=== PATIENT | female | born 1970 ===

== ENCOUNTER 2017-01-13 14:39 | Emergency (ER) | payer MEDICAID ==
[2017-01-13 14:50] VITALS: RESP 16; TEMP 98.2; O2SAT 100
[2017-01-13 15:45] VITALS: BP 142/99
--- NOTE | 2017-01-13 15:51 | ED PDOC ---
HPI: Skin/Bite Injury Time Seen by Provider: 01/13/17 15:05 Chief Complaint (Nursing): Abnormal Skin Integrity Chief Complaint (Provider): Abnormal Skin Integrity History Per: Patient History/Exam Limitations: no limitations Onset/Duration Of Symptoms: Worse Since (x2 weks), Other (x10 years) Current Symptoms Are (Timing): Still Present Location Of Injury: Right: Shoulder, Posterior: Shoulder Quality Of Symptoms: Painful, Swollen Additional Complaint(s): 46 year old female presents to ED with complaints of chronic right shoulder swelling that worsened in the last 2 weeks and has no past medical history. Patient states she first noticed swelling to the area x10 years ago. (+) redness , warmth, and pain to the area x2 weeks. (-) fever or trauma. PCP: Luis Haider Past Medical History Reviewed: Historical Data, Nursing Documentation, Vital Signs Vital Signs: Last Vital Signs Temp 98.2 F 01/13/17 14:47 Pulse 100 H 01/13/17 14:47 Resp 16 01/13/17 14:47 BP 142/99 H 01/13/17 15:44 Pulse Ox 100 01/13/17 14:47 - Medical History PMH: No Chronic Diseases - Surgical History Surgical History: No Surg Hx - Family History Family History: States: No Known Family Hx - Social History Current smoker - smoking cessation education provided: No Alcohol: None Drugs: Denies - Home Medications Home Medications: Ambulatory Orders Medication Instructions Recorded Cephalexin [cephalexin] 500 mg PO Q6 #28 cap 01/13/17 Naproxen [Naprosyn] 500 mg PO BID PRN #30 tab 01/13/17 - Allergies Allergies/Adverse Reactions: Allergies Allergy/AdvReac Type Severity Reaction Status Date / Time No Known Allergies Allergy Verified 01/13/17 14:47 Review of Systems ROS Statement: Except As Marked, All Systems Reviewed And Found Negative Constitutional: Negative for: Fever Musculoskeletal: Positive for: Shoulder Pain ((+) right shoulder pain, swelling , warmth, and erdness) Physical Exam - Reviewed Nursing Documentation Reviewed: Yes Vital Signs Reviewed: Yes - Physical Exam Appears: Positive for: Non-toxic, No Acute Distress Skin: Positive for: Normal Color (Quarter sized, skin colored mobil nonfluctuant non-indurated mass on right posterior trapezium area. No break in skin integrity. (+) Surrounding erythema), Warm, Dry Respiratory: Negative for: Respiratory Distress Extremity: Negative for: Deformity Neurologic/Psych: Positive for: Alert, Oriented. Negative for: Motor/Sensory Deficits - ECG O2 Sat by Pulse Oximetry: 100 (RA) Pulse Ox Interpretation: Normal Medical Decision Making Medical Decision Makin Initial impression: cellulitis 1535 Patient informed that swelling is likely due to lipoma. If mass enlarges, will require I&D. Patient instructed to follow up with PMD. 1543 Blood pressure: 142/99 Scribe Attestation: Documented by Jessie Cárdenas, acting as a scribe for Tacho Ibrahim PA-C. Provider Scribe Attestation: All medical record entries made by the Scribe were at my direction and personally dictated by me. I have reviewed the chart and agree that the record accurately reflects my personal performance of the history, physical exam, medical decision making, and the department course for this patient. I have also personally directed, reviewed, and agree with the discharge instructions and disposition. Disposition - Clinical Impression Clinical Impression: Cellulitis - Disposition Disposition: Routine/Home Disposition Time: 15:35 Condition: STABLE Additional Instructions: FOLLOW UP WITH DR. NEVAREZ IN 2 DAYS FOR FURTHER EVALUATION WITHOUT FAIL. RETURN TO ED IMMEDIATELY IF FEVER DEVELOPS. Prescriptions: Cephalexin [cephalexin] 500 mg PO Q6 #28 cap Naproxen [Naprosyn] 500 mg PO BID PRN #30 tab PRN Reason: Pain Instructions: Cellulitis (ED) Forms: [employer] (Armenian) Print Language: GEORGIAN
[2017-01-13 16:41] VITALS: PULSE 91
== END 2017-01-13 16:30 | disposition home or self-care (01) ==
LOC: H.ER 14:39
DX: L03.113 Cellulitis of right upper limb (principal)

== ENCOUNTER 2017-01-20 14:50 | Emergency (ER) | payer MEDICAID ==
[2017-01-20 15:05] VITALS: RESP 18; TEMP 98.9; O2SAT 99
--- NOTE | 2017-01-20 15:42 | ED PDOC ---
HPI: Skin/Bite Injury Time Seen by Provider: 01/20/17 15:35 Chief Complaint (Nursing): Abnormal Skin Integrity Chief Complaint (Provider): Lipoma History Per: Patient History/Exam Limitations: no limitations Current Symptoms Are (Timing): Still Present Location Of Injury: Right: Shoulder Additional Complaint(s): Marcia is a 46 y/o female who presents to the ED for evaluation of lipoma. Seen here on 01/13 and discharged with Rx for antibiotics. States that her sister attempted to drain the lipoma at home and stuck a needle into it. Now complaining of increased pain to the lipoma site. PMD: Unknown Past Medical History Reviewed: Historical Data, Nursing Documentation, Vital Signs Vital Signs: Last Vital Signs Temp 98.9 F 01/20/17 15:03 Pulse 102 H 01/20/17 15:03 Resp 18 01/20/17 15:03 BP 148/100 H 01/20/17 15:03 Pulse Ox 99 01/20/17 16:10 - Family History Family History: States: Unknown Family Hx - Home Medications Home Medications: Ambulatory Orders Medication Instructions Recorded Cephalexin [cephalexin] 500 mg PO Q6 #28 cap 01/13/17 Naproxen [Naprosyn] 500 mg PO BID PRN #30 tab 01/13/17 Naproxen [Naprosyn Tab] 375 mg PO Q8 PRN #21 tab 01/20/17 - Allergies Allergies/Adverse Reactions: Allergies Allergy/AdvReac Type Severity Reaction Status Date / Time No Known Allergies Allergy Verified 01/13/17 14:47 Review of Systems ROS Statement: Except As Marked, All Systems Reviewed And Found Negative Skin: Positive for: Other (Lipoma to right posterior shoulder) Physical Exam - Reviewed Nursing Documentation Reviewed: Yes Vital Signs Reviewed: Yes - Physical Exam Appears: Positive for: Well, Non-toxic, No Acute Distress Head Exam: Positive for: ATRAUMATIC, NORMAL INSPECTION, NORMOCEPHALIC Skin: Positive for: Normal Color (with 3 cm region of fluctuance noted, with no erythema, by right posterior shoulder), Warm, Dry Eye Exam: Positive for: EOMI, Normal appearance, PERRL Neck: Positive for: Normal, Painless ROM Extremity: Positive for: Normal ROM. Negative for: Deformity Neurologic/Psych: Positive for: Alert, Oriented - ECG O2 Sat by Pulse Oximetry: 99 (RA) Pulse Ox Interpretation: Normal - Progress ED Course And Treament: tdap 0.5 ml IM x 1 dose Verbal consent prior to procedure. Lidocaine/epi 1% infiltrated to cyst. Incision made with serosanguinous fluid drained and small whitish material. Packing placed. Patient advised f/u with ED in 2 days for removal of sutures. Advised f/u with surgery for removal of sebaceous cyst. Medical Decision Making Medical Decision Making: Time: 15:40 Procedure: --aspirated 2cc of serosanguinous, mildly purulent discharge using an 18 adi needle --Bandaged wound --Patient is medically stable and will be discharged home --Advised patient to return to ED in 2 days for wound check Scribe Attestation: Documented by Luz Maria Long, acting as a scribe for Ingrid Beltran PA-C Provider Scribe Attestation: All medical record entries made by the Scribe were at my direction and personally dictated by me. I have reviewed the chart and agree that the record accurately reflects my personal performance of the history, physical exam, medical decision making, and the department course for this patient. I have also personally directed, reviewed, and agree with the discharge instructions and disposition. Disposition - Clinical Impression Clinical Impression: Cyst - Patient ED Disposition Is Patient to be Admitted: No - Disposition Referrals: Neo Osborne MD [Staff Provider] - Disposition: Routine/Home Disposition Time: 16:14 Condition: FAIR Prescriptions: Naproxen [Naprosyn Tab] 375 mg PO Q8 PRN #21 tab PRN Reason: Pain, Moderate (4-7) Instructions: Cyst (ED), Incision and Drainage (ED) Forms: [employer] (Frisian) Print Language: MACEDONIAN
[2017-01-20] MEDS: Lidocaine 1% w Epi 1:100,000 Inj IJ ONE (16:39)
[2017-01-20 16:57] VITALS: BP 137/90; PULSE 88
== END 2017-01-20 16:51 | disposition home or self-care (01) ==
LOC: H.ER 14:50
DX: L72.3 Sebaceous cyst (principal)

== ENCOUNTER 2017-01-22 16:12 | Emergency (ER) | payer MEDICAID ==
[2017-01-22 16:34] VITALS: BP 156/100; PULSE 102; RESP 18; TEMP 98.8; O2SAT 99
--- NOTE | 2017-01-22 16:54 | ED PDOC ---
HPI: Wound Care - HPI Time Seen by Provider: 01/22/17 16:34 Chief Complaint (Nursing): Wound Check Chief Complaint (Provider): Wound Check History Per: Patient Exam Limitations: no limitations Onset/Duration Of Symptoms: Days (x 2) Current Symptoms Are (Timing): Still Present Location Of Injury: Right: Shoulder Quality Of Symptoms: Painful Additional Complaint(s): Marcia is a 46 y/o female who presents to the ED for wound check. She was seen here 2 days ago for I&D of abscess on her right posterior. Patient does have mild pain near the site. She reports compliance with taking her Keflex, and is taking Naprosyn for pain. PMD: [facility] Past Medical History Reviewed: Historical Data, Nursing Documentation, Vital Signs Vital Signs: Last Vital Signs Temp 98.8 F 01/22/17 16:30 Pulse 102 H 01/22/17 16:30 Resp 18 01/22/17 16:30 BP 156/100 H 01/22/17 16:30 Pulse Ox 99 01/22/17 16:30 - Medical History PMH: HTN - Surgical History Other surgeries: abdominoplasty, tubal ligation - Family History Family History: States: No Known Family Hx - Social History Current smoker - smoking cessation education provided: No Alcohol: None Drugs: Denies - Home Medications Home Medications: Ambulatory Orders Medication Instructions Recorded Cephalexin [cephalexin] 500 mg PO Q6 #28 cap 01/13/17 Naproxen [Naprosyn] 500 mg PO BID PRN #30 tab 01/13/17 Naproxen [Naprosyn Tab] 375 mg PO Q8 PRN #21 tab 01/20/17 Sulfamethoxazole/Trimethoprim 1 tab PO BID #14 tab 01/22/17 [Bactrim DS 800 mg-160 mg] - Allergies Allergies/Adverse Reactions: Allergies Allergy/AdvReac Type Severity Reaction Status Date / Time No Known Allergies Allergy Verified 01/13/17 14:47 Review of Systems ROS Statement: Except As Marked, All Systems Reviewed And Found Negative Constitutional: Negative for: Fever, Chills Skin: Positive for: Other (Abscess at right shoulder) Physical Exam - Reviewed Nursing Documentation Reviewed: Yes Vital Signs Reviewed: Yes - Physical Exam Appears: Positive for: Well, Non-toxic, No Acute Distress Head Exam: Positive for: ATRAUMATIC, NORMAL INSPECTION, NORMOCEPHALIC Skin: Positive for: Normal Color. Negative for: Rash Eye Exam: Positive for: Normal appearance Back: Positive for: Other (Actively draining abscess to right posterior shoulder with minimal localized erythema, mild tenderness to palpation). Negative for: Normal Inspection Extremity: Positive for: Normal ROM. Negative for: Deformity Neurologic/Psych: Positive for: Alert, Oriented - ECG O2 Sat by Pulse Oximetry: 99 (RA) Pulse Ox Interpretation: Normal Medical Decision Making Medical Decision Making: Time: 16:55 Procedure Note: Packing removed, wound irrigated with normal saline. Expressed additional amount of purulent discharge and re-packed the wound with 1/4 inch gauze. Sterile bandage then applied. Plan: --Advised patient to continue course of Keflex and use Naprosyn prn for pain --Additionally, she will start Bactrim --Return to ED in 2 days for wound check Scribe Attestation: Documented by Luz Maria Long, acting as a scribe for Shellie Vincent PA-C Provider Scribe Attestation: All medical record entries made by the Scribe were at my direction and personally dictated by me. I have reviewed the chart and agree that the record accurately reflects my personal performance of the history, physical exam, medical decision making, and the department course for this patient. I have also personally directed, reviewed, and agree with the discharge instructions and disposition. Disposition - Clinical Impression Clinical Impression: Admission for wound check of abscess, Cyst - Patient ED Disposition Is Patient to be Admitted: No Counseled Patient/Family Regarding: Diagnosis, Need For Followup, Rx Given - Disposition Referrals: [facility] [Outside] Disposition: Routine/Home Disposition Time: 17:27 Condition: STABLE Additional Instructions: Keep wound clean and dry. Continue with current prescriptions and take new medication as directed. Return in 2 days for additional wound check. Prescriptions: Sulfamethoxazole/Trimethoprim [Bactrim DS 800 mg-160 mg] 1 tab PO BID #14 tab Instructions: Abscess (ED), Cyst (ED) Forms: [employer] (German) Print Language: BULGARIAN Time Seen by Provider: 01/22/17 16:34 Chief Complaint (Nursing): Wound Check
== END 2017-01-22 17:54 | disposition home or self-care (01) ==
LOC: H.ER 16:12
DX: Z48.00 Encounter for change or removal of nonsurgical wound dressing (principal); I10 Essential (primary) hypertension

== ENCOUNTER 2017-01-24 16:47 | Emergency (ER) | payer MEDICAID ==
[2017-01-24 17:00] VITALS: BP 145/90; PULSE 100; RESP 18; TEMP 97.9; O2SAT 99
--- NOTE | 2017-01-24 17:10 | ED PDOC ---
HPI: Wound Care - HPI Time Seen by Provider: 01/24/17 17:00 Chief Complaint (Nursing): Wound Check Chief Complaint (Provider): Wound Check History Per: Patient Exam Limitations: no limitations Onset/Duration Of Symptoms: Days (x4) Current Symptoms Are (Timing): Still Present Location Of Injury: Right: Shoulder Additional Complaint(s): Marcia Chavez is a 46 year old female that presents to the ED for a wound check on her right shoulder. Patient states that she was originally seen in the ED four days ago a cyst on her right shoulder, which was drained and packed, and she was given a prescription for Keflex. Patient then reports that she returned two days ago for a wound check, at which point the packing was removed but still purulent. Her wound was then repacked, and she was given a new prescription for Bactrim instead of Keflex. Patient presents today for another wound check. Past Medical History Reviewed: Historical Data, Nursing Documentation, Vital Signs Vital Signs: Last Vital Signs Temp 97.9 F 01/24/17 16:57 Pulse 100 H 01/24/17 16:57 Resp 18 01/24/17 16:57 BP 145/90 01/24/17 16:57 Pulse Ox 99 01/24/17 16:57 - Medical History PMH: HTN - Family History Family History: States: Unknown Family Hx - Home Medications Home Medications: Ambulatory Orders Medication Instructions Recorded Cephalexin [cephalexin] 500 mg PO Q6 #28 cap 01/13/17 Naproxen [Naprosyn] 500 mg PO BID PRN #30 tab 01/13/17 Naproxen [Naprosyn Tab] 375 mg PO Q8 PRN #21 tab 01/20/17 Sulfamethoxazole/Trimethoprim 1 tab PO BID #14 tab 01/22/17 [Bactrim DS 800 mg-160 mg] - Allergies Allergies/Adverse Reactions: Allergies Allergy/AdvReac Type Severity Reaction Status Date / Time No Known Allergies Allergy Verified 01/13/17 14:47 Review of Systems Constitutional: Negative for: Fever Skin: Positive for: Other (wound check of cyst present on right shoulder) Physical Exam - Reviewed Nursing Documentation Reviewed: Yes Vital Signs Reviewed: Yes - Physical Exam Appears: Positive for: Non-toxic, No Acute Distress Head Exam: Positive for: ATRAUMATIC, NORMOCEPHALIC Skin: Positive for: Normal Color, Warm Extremity: Positive for: Other (Purulent drainage still noted to wound present on right shoulder, more of cyst sac came out. ) Neurologic/Psych: Positive for: Alert, Oriented. Negative for: Motor/Sensory Deficits - ECG O2 Sat by Pulse Oximetry: 99 (RA) Pulse Ox Interpretation: Normal Medical Decision Making Medical Decision Making: Impression: Wound Check Plan: * Patient reports that she has appointment to have cyst present on right shoulder surgically removed on 02/03/17. Patient is advised to apply warm compress to the area. Patient has no further complaints and is stable for discharge home. Scribe Attestation: Documented by Corrina Mccrary, acting as a scribe for Niesha Shah PA-C. Provider Scribe Attestation: All medical record entries made by the Scribe were at my direction and personally dictated by me. I have reviewed the chart and agree that the record accurately reflects my personal performance of the history, physical exam, medical decision making, and the department course for this patient. I have also personally directed, reviewed, and agree with the discharge instructions and disposition. Disposition - Clinical Impression Clinical Impression: Encounter for wound re-check - Patient ED Disposition Is Patient to be Admitted: No - Disposition Disposition: Routine/Home Disposition Time: 17:15 Condition: STABLE Forms: [employer] (Upper Sorbian)
== END 2017-01-24 17:46 | disposition home or self-care (01) ==
LOC: H.ER 16:47
DX: Z48.00 Encounter for change or removal of nonsurgical wound dressing (principal)

== ENCOUNTER 2017-01-26 15:03 | Emergency (ER) | payer MEDICAID ==
[2017-01-26 15:26] VITALS: BP 148/92; PULSE 100; RESP 16; TEMP 98.6; O2SAT 98
--- NOTE | 2017-01-26 15:41 | ED PDOC ---
HPI: Hypertension/Hypotension Time Seen by Provider: 01/26/17 15:27 Chief Complaint (Nursing): High Blood Pressure Chief Complaint (Provider): Headache, hypertension History Per: Patient History/Exam Limitations: no limitations Onset/Duration Of Symptoms: Mins Current Symptoms Are (Timing): Still Present Additional History Per: Patient Additional Complaint(s): The patient is a 46yo female, past medical history of hypertension, presents to the ED for evaluation of a headache she developed this morning. Patient describes the headache as bitemporal and atraumatic, gradual onset. She states she has had similar headaches in the past and her pain is resolved by using Tylenol; patient states she took Tylenol [employer] and is currently without pain. Patient is requesting her blood pressure to be checked. She denies any fever, chills, head injury or sudden onset headaches. Past Medical History Reviewed: Historical Data, Nursing Documentation, Vital Signs Vital Signs: Last Vital Signs Temp 98.6 F 01/26/17 15:24 Pulse 100 H 01/26/17 15:24 Resp 16 01/26/17 15:24 BP 148/92 H 01/26/17 15:24 Pulse Ox 98 01/26/17 15:24 - Medical History PMH: HTN - Surgical History Surgical History: No Surg Hx - Family History Family History: States: Unknown Family Hx - Social History Current smoker - smoking cessation education provided: No Alcohol: None Drugs: Denies - Home Medications Home Medications: Ambulatory Orders Medication Instructions Recorded Cephalexin [cephalexin] 500 mg PO Q6 #28 cap 01/13/17 Naproxen [Naprosyn] 500 mg PO BID PRN #30 tab 01/13/17 Naproxen [Naprosyn Tab] 375 mg PO Q8 PRN #21 tab 01/20/17 Sulfamethoxazole/Trimethoprim 1 tab PO BID #14 tab 01/22/17 [Bactrim DS 800 mg-160 mg] - Allergies Allergies/Adverse Reactions: Allergies Allergy/AdvReac Type Severity Reaction Status Date / Time No Known Allergies Allergy Verified 01/13/17 14:47 Review of Systems ROS Statement: Except As Marked, All Systems Reviewed And Found Negative Cardiovascular: Positive for: Other (hypertension ) Neurological: Positive for: Headache (now resolved) Physical Exam - Reviewed Nursing Documentation Reviewed: Yes Vital Signs Reviewed: Yes - Physical Exam Appears: Positive for: Non-toxic, No Acute Distress Head Exam: Positive for: ATRAUMATIC, NORMAL INSPECTION, NORMOCEPHALIC Skin: Positive for: Normal Color Eye Exam: Positive for: Normal appearance, EOMI, PERRL Neck: Positive for: Normal, Supple Cardiovascular/Chest: Positive for: Regular Rate, Rhythm Respiratory: Positive for: Normal Breath Sounds. Negative for: Accessory Muscle Use, Respiratory Distress Gastrointestinal/Abdominal: Positive for: Normal Exam Back: Positive for: Normal Inspection Extremity: Positive for: Normal ROM. Negative for: Deformity, Swelling Neurologic/Psych: Positive for: Alert, Oriented. Negative for: Motor/Sensory Deficits - ECG O2 Sat by Pulse Oximetry: 98 (RA) Pulse Ox Interpretation: Normal Medical Decision Making Medical Decision Making: Time: 1530 Impression: Headache, hypertension Plan: -- Patient informed to f/u with PCP regarding blood pressure checks. Informed to return to ED if symptoms worsen or new symptoms arise. Scribe Attestation: Documented by Estee Sorenson acting as a scribe for LATASHA Heaton Provider Attestation: All medical record entries made by the Scribe were at my direction and personally dictated by me. I have reviewed the chart and agree that the record accurately reflects my personal performance of the history, physical exam, medical decision making, and the department course for this patient. I have also personally directed, reviewed, and agree with the discharge instructions and disposition. Disposition - Clinical Impression Clinical Impression: Headache - Disposition Disposition: Routine/Home Disposition Time: 15:41 Condition: STABLE Additional Instructions: FOLLOW UP WITH DR. MARTE IN 2 DAYS FOR FURTHER EVALUATION Instructions: Acute Headache (ED) Forms: [employer] (Kazakh)
== END 2017-01-26 16:01 | disposition home or self-care (01) ==
LOC: H.ER 15:03
DX: I10 Essential (primary) hypertension (principal)

== ENCOUNTER 2017-04-27 13:03 | Emergency (ER) | payer MEDICAID ==
[2017-04-27 13:03] VITALS: BMI 30.5
[2017-04-27] MEDS ORDERED: Sodium Chloride 0.9% 1,000 ML IV STA (15:01)
[2017-04-27 16:01] LABS: BASO # 0.1 K/uL (0.0-0.2); BASO % 0.6 % (0.0-2.0); EOS # 0.3 K/uL (0.0-0.7); EOS % 3.3 % (0.0-4.0); HEMATOCRIT 39.2 % (34.0-47.0); LYMPH # 2.3 K/uL (1.0-4.3); LYMPH % 23.8 % (20.0-40.0); MEAN CELL VOLUME 92.3 fl (81.0-99.0); MEAN CORPUSCULAR HEMOGLOBIN 29.8 pg (27.0-31.0); MEAN CORPUSCULAR HGB CONC 32.3 g/dL (33.0-37.0); MEAN PLATELET VOLUME 7.9 fl (7.2-11.7); MONO # 0.8 K/uL (0.0-0.8); NEUT # 6.1 K/uL (1.8-7.0); NEUT % 64.3 % (50.0-75.0); NRBC % 0.1 % (0.0-0.0); RED CELL DISTRIBUTION WIDTH 12.9 % (11.5-14.5); WHITE BLOOD COUNT 9.5 K/uL (4.8-10.8)
[2017-04-27 16:16] LABS: ALB/GLOB RATIO 1.3 (1.0-2.1); ALKALINE PHOSPHATASE 71 U/L (38-126); ALT/SGPT 79 U/L (9-52); AST/SGOT 52 U/L (14-36); BILIRUBIN,TOTAL 0.4 mg/dl (0.2-1.3); BLOOD UREA NITROGEN 13 mg/dl (7-17); CALCIUM 8.9 mg/dL (8.4-10.2); CARBON DIOXIDE 25 mmol/L (22-30); CHLORIDE 104 mmol/L (98-107); GFR AFRICAN-AMERICAN > 60; GLUCOSE,RANDOM 78 mg/dL (65-105); LIPASE 129 U/L (23-300); SODIUM 139 mmol/l (132-148)
--- NOTE | 2017-04-27 16:16 | ED PDOC ---
HPI: Abdomen Time Seen by Provider: 04/27/17 13:17 Chief Complaint (Nursing): GI Problem Chief Complaint (Provider): GI Problem History Per: Patient History/Exam Limitations: no limitations Onset/Duration Of Symptoms: Days (x 2) Additional Complaint(s): 46 year old female with a past medical history of hypertension presents to the ED complaining of nausea, cramping abdominal pain, headache and body aches, onset 2 days ago. Patient reports that she had been vomiting and had diarrhea as well, but those symptoms have since been resolved. Shortly before these current symptoms began, patient ate a salad made with shrimp. She denies any fever. PMD: Dr. Christine Meneses MD Past Medical History Reviewed: Historical Data, Nursing Documentation, Vital Signs Vital Signs: Last Vital Signs Temp 98 F 04/27/17 19:03 Pulse 74 04/27/17 19:03 Resp 20 04/27/17 19:03 BP 120/74 04/27/17 19:03 Pulse Ox 98 04/27/17 19:03 - Medical History PMH: HTN Denies: Chronic Kidney Disease - Surgical History Surgical History: No Surg Hx - Family History Family History: States: No Known Family Hx - Home Medications Home Medications: Ambulatory Orders Medication Instructions Recorded Lisinopril [Zestril] 10 mg PO DAILY 02/18/17 Ondansetron ODT [Zofran ODT] 4 mg PO Q8 PRN #12 odt 04/27/17 - Allergies Allergies/Adverse Reactions: Allergies Allergy/AdvReac Type Severity Reaction Status Date / Time No Known Allergies Allergy Verified 04/27/17 13:08 Review of Systems ROS Statement: Except As Marked, All Systems Reviewed And Found Negative Constitutional: Negative for: Fever Gastrointestinal: Positive for: Nausea, Abdominal Pain (cramping) Musculoskeletal: Positive for: Other (body aches) Neurological: Positive for: Headache Physical Exam - Reviewed Nursing Documentation Reviewed: Yes Vital Signs Reviewed: Yes - Physical Exam Appears: Positive for: Non-toxic, No Acute Distress Head Exam: Positive for: ATRAUMATIC, NORMOCEPHALIC Skin: Positive for: Normal Color, Warm, Dry Eye Exam: Positive for: EOMI, Normal appearance, PERRL Neck: Positive for: Normal, Painless ROM, Supple Cardiovascular/Chest: Positive for: Regular Rate, Rhythm. Negative for: Murmur Respiratory: Positive for: Normal Breath Sounds. Negative for: Respiratory Distress Gastrointestinal/Abdominal: Positive for: Normal Exam, Soft Back: Positive for: Normal Inspection. Negative for: L CVA Tenderness, R CVA Tenderness, Vertebral Tenderness Extremity: Positive for: Normal ROM. Negative for: Pedal Edema, Deformity Neurologic/Psych: Positive for: Alert, Oriented. Negative for: Motor/Sensory Deficits - Laboratory Results Result Diagrams: 04/27/17 15:50 04/27/17 15:50 - ECG O2 Sat by Pulse Oximetry: 100 (RA) Pulse Ox Interpretation: Normal - Progress Re-evaluation Time: 18:50 Condition: Re-examined, Improved Medical Decision Making Medical Decision Making: Time: 15:00 Impression: abdominal cramping, nausea, headaches and body aches Differential diagnoses: viral syndrome, acute gastroenteritis, food poisoning, UTI Initial Plan: --CMP --Lipase --Urine dipstick --CBC --Sodium Chloride IV 1,000 mls/hr --Toradol 30 mg IVP --Zofran Inj 4 mg IVP Scribe Attestation: Documented by Candice Shields, acting as a scribe for Cathryn Lugo MD Provider Scribe Attestation: All medical record entries made by the Scribe were at my direction and personally dictated by me. I have reviewed the chart and agree that the record accurately reflects my personal performance of the history, physical exam, medical decision making, and the department course for this patient. I have also personally directed, reviewed, and agree with the discharge instructions and disposition. Disposition - Clinical Impression Clinical Impression: Gastroenteritis - Patient ED Disposition Is Patient to be Admitted: No Counseled Patient/Family Regarding: Studies Performed, Diagnosis, Need For Followup - Disposition Referrals: [facility] [Outside] Disposition: Routine/Home Disposition Time: 19:00 Condition: GOOD Additional Instructions: Follow up with your PCP in 2-3 days. Prescriptions: Ondansetron ODT [Zofran ODT] 4 mg PO Q8 PRN #12 odt PRN Reason: Nausea/Vomiting Instructions: Gastroenteritis (DC) Print Language: NIGERIAN
[2017-04-27 19:04] VITALS: BP 120/74; PULSE 74; RESP 20; TEMP 98
[2017-04-30 10:30] VITALS: O2SAT 100
== END 2017-04-27 19:04 | disposition home or self-care (01) ==
LOC: H.ER 13:03
DX: K52.9 Noninfective gastroenteritis and colitis, unspecified (principal); I10 Essential (primary) hypertension
CPT/HCPCS: 80053; 83690; 85025; 96361; 96374; 96375; 99284; J1885; J2405; J7040

== ENCOUNTER 2017-06-29 13:56 | Emergency (ER) | payer MEDICAID ==
[2017-06-29 13:57] VITALS: BMI 30.5
[2017-06-29 14:49] VITALS: BP 131/91; PULSE 91; RESP 19; TEMP 99; O2SAT 99
--- NOTE | 2017-06-29 15:08 | ED PDOC ---
HPI: General Adult Time Seen by Provider: 06/29/17 14:34 Chief Complaint (Nursing): Flu-like Symptoms Chief Complaint (Provider): Flu-like Symptoms History Per: Patient History/Exam Limitations: no limitations Onset/Duration Of Symptoms: Days (x yesterday) Current Symptoms Are (Timing): Still Present Additional Complaint(s): Marcia is a 46 year old female who presents to the emergency department complaining of headache, cough, malaise and fever since yesterday. No difficulty breathing or syncope. PMD: Luis Haider Past Medical History Reviewed: Historical Data, Nursing Documentation, Vital Signs Vital Signs: Last Vital Signs Temp 99.0 F 06/29/17 14:44 Pulse 91 H 06/29/17 14:44 Resp 19 06/29/17 14:44 BP 131/91 H 06/29/17 14:44 Pulse Ox 99 06/29/17 15:25 - Medical History PMH: HTN Denies: Chronic Kidney Disease - Surgical History Surgical History: No Surg Hx - Family History Family History: States: Unknown Family Hx - Home Medications Home Medications: Ambulatory Orders Medication Instructions Recorded Lisinopril [Zestril] 10 mg PO DAILY 02/18/17 Ondansetron ODT [Zofran ODT] 4 mg PO Q8 PRN #12 odt 04/27/17 Ibuprofen [Motrin Tab] 600 mg PO Q6 PRN #15 tab 06/29/17 Oseltamivir [Tamiflu] 75 mg PO BID #10 cap 06/29/17 - Allergies Allergies/Adverse Reactions: Allergies Allergy/AdvReac Type Severity Reaction Status Date / Time No Known Allergies Allergy Verified 04/27/17 13:08 Review of Systems ROS Statement: Except As Marked, All Systems Reviewed And Found Negative Constitutional: Positive for: Fever, Malaise Respiratory: Positive for: Cough. Negative for: Other (difficulty breathing) Neurological: Positive for: Headache. Negative for: Other (syncope) Physical Exam - Reviewed Nursing Documentation Reviewed: Yes Vital Signs Reviewed: Yes - Physical Exam Appears: Positive for: Non-toxic Head Exam: Positive for: ATRAUMATIC, NORMAL INSPECTION, NORMOCEPHALIC Skin: Negative for: Normal Color ((+): erythematous folds) Eye Exam: Positive for: Normal appearance, EOMI, PERRL ENT: Positive for: Normal ENT Inspection Neck: Positive for: Normal Cardiovascular/Chest: Positive for: Regular Rate, Rhythm Respiratory: Positive for: Normal Breath Sounds. Negative for: Respiratory Distress Gastrointestinal/Abdominal: Positive for: Normal Exam Back: Positive for: Normal Inspection Extremity: Positive for: Normal ROM. Negative for: Deformity Neurologic/Psych: Positive for: Alert, automatic lathe setter II-XII, Oriented. Negative for: Motor/Sensory Deficits - ECG O2 Sat by Pulse Oximetry: 99 (RA) Pulse Ox Interpretation: Normal Medical Decision Making Medical Decision Making: Time: 15:05 Symptoms classic for influenza-like symptoms Plan: - Toradol 30 mg IM Going to initiate Tamiflu and follow up with PCP. Upon provider evaluation patient is medically stable, and requires no further treatment in the ED at this time. Patient will be discharged with Rx for Tamiflu. Counseling was provided and all questions were answered regarding diagnosis and need to follow up with PCP. There is agreement to discharge plan. Return if symptoms persist or worsen. Scribe Attestation: Documented by Fede Brock, acting as a scribe for Cleveland Valle III, DO Provider Scribe Attestation: All medical record entries made by the Scribe were at my direction and personally dictated by me. I have reviewed the chart and agree that the record accurately reflects my personal performance of the history, physical exam, medical decision making, and the department course for this patient. I have also personally directed, reviewed, and agree with the discharge instructions and disposition. Disposition - Clinical Impression Clinical Impression: Influenza-like symptoms - Patient ED Disposition Is Patient to be Admitted: No - Disposition Referrals: Luis Haider PA [Primary Care Provider] - Disposition: Routine/Home Disposition Time: 15:20 Condition: STABLE Additional Instructions: Take medications as directed. Return to ER for any new or worsening symptoms. Prescriptions: Ibuprofen [Motrin Tab] 600 mg PO Q6 PRN #15 tab PRN Reason: Pain, Moderate (4-7) Oseltamivir [Tamiflu] 75 mg PO BID #10 cap Instructions: Influenza in Children (ED), Viral Syndrome (ED) Forms: [facility] (Mongolian) Print Language: LAO
== END 2017-06-29 15:27 | disposition home or self-care (01) ==
LOC: H.ER 13:56 → SUPCPDRO 13:56 → H.ER 15:27
DX: J11.1 Influenza due to unidentified influenza virus with other respiratory manifestations (principal)
CPT/HCPCS: 96372; 99283; J1885

== ENCOUNTER 2018-07-06 14:04 | Emergency (ER) | payer MEDICAID ==
[2018-07-06 14:46] VITALS: BMI 27.4
[2018-07-06 14:47] VITALS: RESP 18; TEMP 97.8; O2SAT 100
--- NOTE | 2018-07-06 16:44 | ED PDOC ---
HPI: Female Pain Time Seen by Provider: 07/06/18 16:02 Chief Complaint (Nursing): Female Genitourinary Chief Complaint (Provider): Vaginal spotting History Per: Patient History/Exam Limitations: no limitations Onset/Duration Of Symptoms: Days, Persistent Current Symptoms Are (Timing): Still Present Additional Complaint(s): 47yo female, otherwise well, comes to ER reporting vaginal spotting since 06/11/18. Patient reports her LMP was on May 28. She report associated lower abdominal cramping. Otherwise, she denies any heavy bleeding, discharge, shortness of breath, lightheadedness, and offers no additional complaints. PMD: none provided Abnormal Vaginal Bleeding: Yes Last Menstral Period: 06/03/18 Past Medical History Reviewed: Historical Data, Nursing Documentation, Vital Signs Vital Signs: Last Vital Signs Temp 97.8 F 07/06/18 14:46 Pulse 85 07/06/18 14:46 Resp 18 07/06/18 14:46 BP 149/93 H 07/06/18 14:46 Pulse Ox 100 07/06/18 14:46 - Medical History PMH: HTN Denies: Chronic Kidney Disease - Surgical History Surgical History: No Surg Hx - Family History Family History: States: No Known Family Hx - Home Medications Home Medications: Ambulatory Orders Medication Instructions Recorded Lisinopril [Zestril] 10 mg PO DAILY 02/18/17 Ondansetron ODT [Zofran ODT] 4 mg PO Q8 PRN #12 odt 04/27/17 Ibuprofen [Motrin Tab] 600 mg PO Q6 PRN #15 tab 06/29/17 Oseltamivir Cap [Tamiflu] 75 mg PO BID #10 cap 06/29/17 Naproxen [Naprosyn] 500 mg PO Q12H #20 tab 07/06/18 - Allergies Allergies/Adverse Reactions: Allergies Allergy/AdvReac Type Severity Reaction Status Date / Time No Known Allergies Allergy Verified 07/06/18 14:47 Review of Systems ROS Statement: Except As Marked, All Systems Reviewed And Found Negative Cardiovascular: Negative for: Light Headedness Respiratory: Negative for: Shortness of Breath Gastrointestinal: Positive for: Abdominal Pain (lower abdominal cramping pain) Genitourinary Female: Positive for: Vaginal Bleeding. Negative for: Vaginal Discharge Physical Exam - Reviewed Nursing Documentation Reviewed: Yes Vital Signs Reviewed: Yes - Physical Exam Appears: Positive for: Non-toxic, No Acute Distress Head Exam: Positive for: ATRAUMATIC, NORMAL INSPECTION, NORMOCEPHALIC Skin: Positive for: Normal Color Eye Exam: Positive for: Normal appearance Neck: Positive for: Normal, Supple Cardiovascular/Chest: Positive for: Regular Rate, Rhythm. Negative for: Murmur Respiratory: Positive for: Normal Breath Sounds Gastrointestinal/Abdominal: Positive for: Soft. Negative for: Tenderness, Mass, Guarding, Rebound Pelvic Exam: Positive for: Blood (scant blood in vault), Other (closed cervix). Negative for: Mass Neurologic/Psych: Positive for: Alert, Oriented - Laboratory Results Result Diagrams: 07/06/18 17:00 07/06/18 17:00 - ECG O2 Sat by Pulse Oximetry: 100 (RA) Pulse Ox Interpretation: Normal Medical Decision Making Medical Decision Makinyo female with vaginal spotting x 3.5 weeks rule out ovarian cyst vs. fibroids Plan: -- Labs -- US transvaginal 1725 US Transvaginal FINDINGS: UTERUS: Measures 9.8 x 5.5 x 6.0 cm. Anteverted and bulky. There is a 3.5 x 2.5 x 3.2 cm intramural anterior fundal fibroid. ENDOMETRIUM: Measures nine mm in diameter. Normal in appearance. CERVIX: No cervical abnormality identified. RIGHT OVARY: Measures 1.9 x 1.7 x 1.8 cm. No solid mass. Normal flow. LEFT OVARY: Measures 3.3 x 1.4 x 2.5 cm. No solid mass. Normal flow. There are 1.4 x 1.1 x 1.3 cm and 1.5 x 1.0 x 1.4 cm follicles/cysts. FREE FLUID: No significant free fluid noted. OTHER FINDINGS: None. IMPRESSION: 3.5 x 2.5 x 3.2 cm intramural anterior fundal fibroid. Scribe Attestation: Documented by Estee Sorenson acting as a scribe for Porter Milner MD. Provider Attestation: All medical record entries made by the Scribe were at my direction and personally dictated by me. I have reviewed the chart and agree that the record accurately reflects my personal performance of the history, physical exam, medical decision making, and the department course for this patient. I have also personally directed, reviewed, and agree with the discharge instructions and disposition. Disposition - Clinical Impression Clinical Impression: Fibroid uterus - Patient ED Disposition Is Patient to be Admitted: No Counseled Patient/Family Regarding: Studies Performed, Diagnosis, Need For Followup, Rx Given - Disposition Referrals: [facility] [Outside] Disposition: Routine/Home Disposition Time: 18:13 Condition: FAIR Prescriptions: Naproxen [Naprosyn] 500 mg PO Q12H #20 tab Instructions: Uterine Fibroids Forms: [facility] (Icelandic) Print Language: ARGENTINE
--- NOTE | 2018-07-06 17:19 | US ---
Date of service: 07/06/2018 HISTORY: menorrhagia COMPARISON: None available. TECHNIQUE: Transvaginal pelvic ultrasound was performed. FINDINGS: UTERUS: Measures 9.8 x 5.5 x 6.0 cm. Anteverted and bulky. There is a 3.5 x 2.5 x 3.2 cm intramural anterior fundal fibroid. ENDOMETRIUM: Measures nine mm in diameter. Normal in appearance. CERVIX: No cervical abnormality identified. RIGHT OVARY: Measures 1.9 x 1.7 x 1.8 cm. No solid mass. Normal flow. LEFT OVARY: Measures 3.3 x 1.4 x 2.5 cm. No solid mass. Normal flow. There are 1.4 x 1.1 x 1.3 cm and 1.5 x 1.0 x 1.4 cm follicles/cysts. FREE FLUID: No significant free fluid noted. OTHER FINDINGS: None. IMPRESSION: 3.5 x 2.5 x 3.2 cm intramural anterior fundal fibroid.
[2018-07-06 17:34] LABS: BASO % 0.5 % (0.0-2.0); EOS # 0.3 K/uL (0.0-0.7); EOS % 3.7 % (0.0-4.0); HEMOGLOBIN 11.4 g/dL (12.0-16.0); LYMPH # 2.3 K/uL (1.0-4.3); LYMPH % 34.3 % (20.0-40.0); MEAN CELL VOLUME 90.2 fl (81.0-99.0); MEAN CORPUSCULAR HEMOGLOBIN 29.9 pg (27.0-31.0); MEAN CORPUSCULAR HGB CONC 33.2 g/dL (33.0-37.0); MEAN PLATELET VOLUME 8.1 fl (7.2-11.7); MONO # 0.5 K/uL (0.0-0.8); MONO % 7.4 % (0.0-10.0); NEUT # 3.7 K/uL (1.8-7.0); NEUT % 54.1 % (50.0-75.0); RBC 3.8 Mil/uL (3.80-5.20); RED CELL DISTRIBUTION WIDTH 13.1 % (11.5-14.5); WHITE BLOOD COUNT 6.8 K/uL (4.8-10.8)
[2018-07-06 17:45] LABS: ALB/GLOB RATIO 1.1 (1.0-2.1); ALBUMIN 3.8 g/dL (3.5-5.0); ALT/SGPT 22 U/L (9-52); AST/SGOT 24 U/L (14-36); BLOOD UREA NITROGEN 19 mg/dl (7-17); CALCIUM 8.6 mg/dL (8.4-10.2); GFR NON-AFRICAN AMERICAN > 60
[2018-07-06 19:01] VITALS: BP 140/90; PULSE 81
== END 2018-07-06 18:55 | disposition home or self-care (01) ==
LOC: H.ER 14:04
DX: D25.9 Leiomyoma of uterus, unspecified (principal); I10 Essential (primary) hypertension; N92.0 Excessive and frequent menstruation with regular cycle

== ENCOUNTER 2018-07-30 17:04 | Emergency (ER) | payer MEDICAID ==
[2018-07-30 17:07] VITALS: BP 143/93; PULSE 89; RESP 16; TEMP 97.8; O2SAT 99
[2018-07-30 17:08] VITALS: BMI 29.2
--- NOTE | 2018-07-30 18:35 | ED PDOC ---
HPI: Back Time Seen by Provider: 07/30/18 17:19 Chief Complaint (Nursing): Back Pain Chief Complaint (Provider): Back Pain History Per: Patient History/Exam Limitations: no limitations Onset/Duration Of Symptoms: Days (X2) Quality Of Discomfort: "Pain" Additional Complaint(s): 47 year old female with no PMHx presents to the ED with left sided back pain that began 2 days ago. Patient developed left lower abdominal pain radiating to the left side of her back. Since then abdominal pain has resolved but back pain persists. Patient states that pain worsens with twisting. She is taking doloneurobion (vitamin B complex, diclofenac, and lidocaine). Patient's last dosage of this medication was today at 2 PM and pain has improved. She denies dysuria, urinary frequency, hematuria and HX of kidney stones. PMD: None provided Past Medical History Reviewed: Historical Data, Nursing Documentation, Vital Signs Vital Signs: Last Vital Signs Temp 97.8 F 07/30/18 17:07 Pulse 89 07/30/18 17:07 Resp 16 07/30/18 17:07 BP 143/93 H 07/30/18 17:07 Pulse Ox 99 07/30/18 17:07 - Medical History PMH: HTN Denies: Chronic Kidney Disease - Family History Family History: States: Unknown Family Hx - Home Medications Home Medications: Ambulatory Orders Medication Instructions Recorded Lisinopril [Zestril] 10 mg PO DAILY 02/18/17 Ondansetron ODT [Zofran ODT] 4 mg PO Q8 PRN #12 odt 04/27/17 Ibuprofen [Motrin Tab] 600 mg PO Q6 PRN #15 tab 06/29/17 Oseltamivir Cap [Tamiflu] 75 mg PO BID #10 cap 06/29/17 Naproxen [Naprosyn] 500 mg PO Q12H #20 tab 07/06/18 Cyclobenzaprine [Cyclobenzaprine 10 mg PO Q8 PRN 5 Days tab 07/30/18 HCl] Ibuprofen [Motrin Tab] 600 mg PO Q6 PRN 7 Days tab 07/30/18 - Allergies Allergies/Adverse Reactions: Allergies Allergy/AdvReac Type Severity Reaction Status Date / Time No Known Allergies Allergy Verified 07/30/18 17:13 Review of Systems ROS Statement: Except As Marked, All Systems Reviewed And Found Negative Gastrointestinal: Positive for: Abdominal Pain (Lower Left Side) Genitourinary Female: Negative for: Dysuria, Frequency, Hematuria Musculoskeletal: Positive for: Back Pain (Left Side ) Physical Exam - Reviewed Nursing Documentation Reviewed: Yes Vital Signs Reviewed: Yes - Physical Exam Appears: Positive for: No Acute Distress Head Exam: Positive for: ATRAUMATIC, NORMOCEPHALIC Skin: Positive for: Normal Color, Warm, Dry Eye Exam: Positive for: EOMI, Normal appearance, PERRL Cardiovascular/Chest: Positive for: Regular Rate, Rhythm Respiratory: Positive for: CNT, Normal Breath Sounds Pulses-Dorsalis Pedis (L): 2+ Pulses-Dorsalis Pedis (R): 2+ Gastrointestinal/Abdominal: Positive for: Normal Exam, Soft. Negative for: Tenderness Back: Positive for: Other (No ecchymosis, erythema, swelling, and no tenderness to palpitation of left mid to left lower back. Full ROM with flexion and extension of back and hips bilaterally, some pain with left lateral rotation of the back.). Negative for: L CVA Tenderness, R CVA Tenderness Extremity: Positive for: Capillary Refill (Less than 2 seconds) Neurological/Psych: Positive for: Awake, Alert, Oriented (X3) - ECG O2 Sat by Pulse Oximetry: 99 (RA) Pulse Ox Interpretation: Normal Medical Decision Making Medical Decision Making: Time: 17:49 Plan: --Urine dip --Toradol 15 mg IM -- Patient advised she will be prescribed Flexeril, as she is driving home as potential for drowsiness. 20:00: Re-evaluated prior to d/c: feeling some improvement. STable for d/c home - ScribeAttestation: Documented by Estela Carbajal acting as a scribe for Beatriz Telles PA-C. Provider ScribeAttestation: All medical record entries made by the Scribe were at my direction and personally dictated by me. I have reviewed the chart and agree that the record accurately reflects my personal performance of the history, physical exam, medical decision making, and the department course for this patient. I have also personally directed, reviewed, and agree with the discharge instructions and disposition. Disposition - Clinical Impression Clinical Impression: Back strain - Patient ED Disposition Is Patient to be Admitted: No Counseled Patient/Family Regarding: Diagnosis, Rx Given - Disposition Referrals: Christy Lincoln PA [Medical Doctor] - Disposition: Routine/Home Disposition Time: 20:02 Condition: STABLE Additional Instructions: Follow up with your primary care doctor for further evaluation if you have continued pain despite meds. Take Ibuprofen and Cyclobenzaprine (muscle relaxer) as needed for pain. Avoid taking muscle relaxer if you will be driving or operating heavy machinery as it can make you sleepy. Prescriptions: Cyclobenzaprine [Cyclobenzaprine HCl] 10 mg PO Q8 PRN 5 Days tab PRN Reason: Muscle Spasm Ibuprofen [Motrin Tab] 600 mg PO Q6 PRN 7 Days tab PRN Reason: Pain, Moderate (4-7) Instructions: Muscle Strain (DC) Forms: [employer] (Mexican) Print Language: SAMMARINESE
== END 2018-07-30 20:02 | disposition home or self-care (01) ==
LOC: H.ER 17:04
DX: S39.012A Strain of muscle, fascia and tendon of lower back, initial encounter (principal); X58.XXXA Exposure to other specified factors, initial encounter; Y92.89 Other specified places as the place of occurrence of the external cause; I10 Essential (primary) hypertension
CPT/HCPCS: 81025; 96372; 99283; J1885

== ENCOUNTER 2018-09-21 10:51 | Emergency (ER) | payer MEDICAID ==
[2018-09-21 10:51] VITALS: BMI 29.2
[2018-09-21 13:08] LABS: BASO # 0.1 K/uL (0.0-0.2); BASO % 0.8 % (0.0-2.0); EOS # 0.3 K/uL (0.0-0.7); EOS % 4.1 % (0.0-4.0); LYMPH # 1.6 K/uL (1.0-4.3); LYMPH % 18.9 % (20.0-40.0); MEAN CELL VOLUME 89.7 fl (81.0-99.0); MEAN CORPUSCULAR HEMOGLOBIN 30.3 pg (27.0-31.0); MEAN CORPUSCULAR HGB CONC 33.8 g/dL (33.0-37.0); MEAN PLATELET VOLUME 7.7 fl (7.2-11.7); MONO # 0.6 K/uL (0.0-0.8); MONO % 7.5 % (0.0-10.0); NEUT # 5.6 K/uL (1.8-7.0); NEUT % 68.7 % (50.0-75.0); NRBC % 0.1 % (0.0-0.0); RBC 4.31 Mil/uL (3.80-5.20); RED CELL DISTRIBUTION WIDTH 13.5 % (11.5-14.5); WHITE BLOOD COUNT 8.2 K/uL (4.8-10.8)
[2018-09-21 13:09] LABS: SQUAMOUS EPITHIAL < 1 /hpf (0-5); URINE BACTERIA RARE (<OCC); URINE BILIRUBIN NEGATIVE (NEGATIVE); URINE BLOOD NEGATIVE (NEGATIVE); URINE CLARITY CLEAR (Clear); URINE COLOR YELLOW (YELLOW); URINE GLUCOSE (UA) NEG (NEGATIVE); URINE LEUKOCYTE ESTERASE NEG Leu/uL (Negative); URINE PROTEIN NEGATIVE (NEGATIVE); URINE UROBILINOGEN 0.2-1.0 mg/dL (0.2-1.0)
[2018-09-21 13:14] LABS: ALB/GLOB RATIO 1.4 (1.0-2.1); ALBUMIN 4.3 g/dL (3.5-5.0); ALT/SGPT 31 U/L (9-52); AST/SGOT 22 U/L (14-36); BLOOD UREA NITROGEN 12 mg/dl (7-17); CALCIUM 9.4 mg/dL (8.4-10.2); GFR NON-AFRICAN AMERICAN > 60
--- NOTE | 2018-09-21 13:32 | ED PDOC ---
HPI: Abdomen Time Seen by Provider: 09/21/18 11:59 Chief Complaint (Nursing): Abdominal Pain Chief Complaint (Provider): Abdominal Pain History Per: Patient History/Exam Limitations: no limitations Onset/Duration Of Symptoms: Days (x2) Current Symptoms Are (Timing): Still Present Additional Complaint(s): 47 year old female with medical history of fibroids, presents to the emergency department with a complaint of worsening lower, left abdominal pain for the past 2 days. Patient has a pending CT ABD/pelvis next week, however, pain became too severe, thus, prompting ED visit. She denies any fever, chills, vomiting, or diarrhea. LMP: 08/18/18 - patient reports history of irregular menses. PCP: none provided Past Medical History Reviewed: Historical Data, Nursing Documentation, Vital Signs Vital Signs: Last Vital Signs Temp 98 F 09/21/18 11:13 Pulse 82 09/21/18 11:13 Resp 16 09/21/18 11:13 BP 160/96 H 09/21/18 11:13 Pulse Ox 100 09/21/18 11:13 Primary Care Provider: Non [facility] Provider, - Medical History PMH: HTN Denies: Chronic Kidney Disease - Family History Family History: States: Unknown Family Hx - Home Medications Home Medications: Ambulatory Orders Medication Instructions Recorded Lisinopril [Zestril] 10 mg PO DAILY 02/18/17 Ondansetron ODT [Zofran ODT] 4 mg PO Q8 PRN #12 odt 04/27/17 Ibuprofen [Motrin Tab] 600 mg PO Q6 PRN #15 tab 06/29/17 Oseltamivir Cap [Tamiflu] 75 mg PO BID #10 cap 06/29/17 Naproxen [Naprosyn] 500 mg PO Q12H #20 tab 07/06/18 Cyclobenzaprine [Cyclobenzaprine 10 mg PO Q8 PRN 5 Days tab 07/30/18 HCl] Ibuprofen [Motrin Tab] 600 mg PO Q6 PRN 7 Days tab 07/30/18 Ibuprofen [Motrin Tab] 800 mg PO Q6 #30 tab 09/21/18 - Allergies Allergies/Adverse Reactions: Allergies Allergy/AdvReac Type Severity Reaction Status Date / Time No Known Allergies Allergy Verified 07/30/18 17:13 Review of Systems ROS Statement: Except As Marked, All Systems Reviewed And Found Negative Constitutional: Negative for: Fever, Chills Gastrointestinal: Positive for: Abdominal Pain (lower, left). Negative for: Vomiting, Diarrhea Physical Exam - Reviewed Nursing Documentation Reviewed: Yes Vital Signs Reviewed: Yes - Physical Exam Appears: Positive for: No Acute Distress Head Exam: Positive for: ATRAUMATIC, NORMAL INSPECTION, NORMOCEPHALIC Skin: Positive for: Normal Color Eye Exam: Positive for: Normal appearance ENT: Positive for: Normal ENT Inspection. Negative for: Pharyngeal Erythema Neck: Positive for: Normal Cardiovascular/Chest: Positive for: Regular Rate, Rhythm Respiratory: Positive for: Normal Breath Sounds. Negative for: Respiratory Distress Gastrointestinal/Abdominal: Positive for: Soft, Tenderness (LLQ). Negative for: Guarding, Rebound Back: Positive for: Normal Inspection. Negative for: L CVA Tenderness, R CVA Tenderness Extremity: Positive for: Normal ROM (upper/lower) Neurological/Psych: Positive for: Awake, Alert, Normal Tone, Oriented - Laboratory Results Result Diagrams: 09/21/18 13:00 09/21/18 13:00 Lab Results: Total Bilirubin 0.4 mg/dl (0.2-1.3) 09/21/18 13:00 AST 22 U/L (14-36) 09/21/18 13:00 ALT 31 U/L (9-52) 09/21/18 13:00 Alkaline Phosphatase 63 U/L (38-126) 09/21/18 13:00 Total Protein 7.3 G/DL (6.3-8.2) 09/21/18 13:00 Albumin 4.3 g/dL (3.5-5.0) 09/21/18 13:00 Globulin 3.0 gm/dL (2.2-3.9) 09/21/18 13:00 Albumin/Globulin Ratio 1.4 (1.0-2.1) 09/21/18 13:00 Urine Color Yellow (YELLOW) 09/21/18 13:00 Urine Clarity Clear (Clear) 09/21/18 13:00 Urine pH 7.0 (5.0-8.0) 09/21/18 13:00 Ur Specific [place] 1.010 (1.003-1.030) 09/21/18 13:00 Urine Protein Negative mg/dL (NEGATIVE) 09/21/18 13:00 Urine Glucose (UA) Neg mg/dL (NEGATIVE) 09/21/18 13:00 Urine Ketones Negative mg/dL (NEGATIVE) 09/21/18 13:00 Urine Blood Negative (NEGATIVE) 09/21/18 13:00 Urine Nitrate Negative (NEGATIVE) 09/21/18 13:00 Urine Bilirubin Negative (NEGATIVE) 09/21/18 13:00 Urine Urobilinogen 0.2-1.0 mg/dL (0.2-1.0) 09/21/18 13:00 Ur Leukocyte Esterase Neg Areli/uL (Negative) 09/21/18 13:00 Urine RBC (Auto) 2 /hpf (0-3) 09/21/18 13:00 Urine Microscopic WBC 1 /hpf (0-5) 09/21/18 13:00 Ur Squamous Epith Cells < 1 /hpf (0-5) 09/21/18 13:00 Urine Bacteria Rare (<OCC) 09/21/18 13:00 - ECG O2 Sat by Pulse Oximetry: 100 (RA) Pulse Ox Interpretation: Normal Medical Decision Making Medical Decision Making: Time: 1227 Initial Plan: work up for LLQ pain with history of fibroids. vitals are, otherwise, stable. (-) suspicion for infection. pain control initiated. * Labs * Toradol IVP * US pelvis/transvaginal 1447 Labs reviewed and are unremarkable. On reassessment, abdomen is soft; patient states pain has improved. Patient to be discharged home, informed to follow up for CT scan as scheduled Informed to take Motrin as needed for pain. Scribe Attestation: Documented by Gina Tejada, acting as a scribe for Ada Schmitz MD. Provider Scribe Attestation: All medical record entries made by the Scribe were at my direction and personally dictated by me. I have reviewed the chart and agree that the record accurately reflects my personal performance of the history, physical exam, medical decision making, and the department course for this patient. I have also personally directed, reviewed, and agree with the discharge instructions and disposition. Disposition - Clinical Impression Clinical Impression: Abdominal pain - Disposition Disposition: Routine/Home Disposition Time: 14:48 Condition: IMPROVED Additional Instructions: Take Motrin as prescribed for pain. Follow up with primary medical doctor and attend scheduled CT scan. Return to the emergency department if symptoms worsen or if new symptoms develop. Prescriptions: Ibuprofen [Motrin Tab] 800 mg PO Q6 #30 tab Forms: [employer] (Armenian) Print Language: SOMALI
--- NOTE | 2018-09-21 14:40 | US ---
Date of service: 09/21/2018 HISTORY: LLQ abd pain, h/o fibroids COMPARISON: 07/06/2018. TECHNIQUE: Transabdominal and transvaginal pelvic ultrasound was performed. FINDINGS: UTERUS: Measures 10.5 x 7.0 x 5.1 cm. Anteverted and enlarged. There is a stable 2.8 x 3.5 x 3.3 cm intramural anterior fundal fibroid. ENDOMETRIUM: Measures 16 mm in diameter. Unremarkable. CERVIX: There are nabothian cysts in the cervix RIGHT OVARY: Measures 2.5 x 2.5 x 1.8 cm. No solid mass. Normal flow. There is a 1.1 x 1.1 x 1.2 cm involuting cyst. LEFT OVARY: Measures 2.2 x 1.7 x 1.1 cm. No solid mass. Normal flow. FREE FLUID: No significant free fluid noted. OTHER FINDINGS: None. IMPRESSION: Little interval change in 2.8 x 3.5 x 3.3 cm intramural anterior fundal fibroid.
[2018-09-21 15:22] VITALS: BP 140/74; PULSE 75; RESP 17; TEMP 97.9
[2018-09-24 11:05] VITALS: O2SAT 100
== END 2018-09-21 15:00 | disposition home or self-care (01) ==
LOC: H.ER 10:51
DX: D25.9 Leiomyoma of uterus, unspecified (principal); I10 Essential (primary) hypertension
CPT/HCPCS: 76830; 76856; 80053; 81003; 85025; 96374; 99283; J1885